=== PATIENT | female | born 2000 | race African-American/Black ===

== ENCOUNTER 2020-10-22 19:32 | Emergency (ER) | payer OTHER ==
[2020-10-22 19:40] VITALS: BMI 28.3
[2020-10-22 20:21] LABS: URINE APPEARANCE CLOUDY; URINE BILIRUBIN NEGATIVE (NEGATIVE); URINE COLOR YELLOW; URINE GLUCOSE (UA) NEGATIVE (NEGATIVE); URINE KETONE TRACE (NEGATIVE); URINE LEUK ESTERASE NEGATIVE (NEGATIVE); URINE NITRITE NEGATIVE (NEGATIVE); URINE PROTEIN NEGATIVE (NEGATIVE)
[2020-10-22] MEDS ORDERED: CEPHALEXIN MONOHYDRATE 500 MG CAPSULE (UD) PO ONE (20:57)
[2020-10-22] MEDS ORDERED: CEPHALEXIN MONOHYDRATE 500 MG CAPSULE (UD) ONE (21:14)
[2020-10-22 21:22] VITALS: BP 111/59; PULSE 68; TEMP 98.3
== END 2020-10-22 21:23 | disposition home or self-care (01) ==
LOC: JER 19:32
DX: N39.0 Urinary tract infection, site not specified (principal)
CPT/HCPCS: 81003; 87086; 99283-25

== ENCOUNTER 2020-11-06 11:26 | Emergency (ER) | payer OTHER | END 2020-11-06 12:10 | disposition home or self-care (01) | LOC: JVIRT 11:26 | DX: R19.7 Diarrhea, unspecified (principal) | CPT/HCPCS: Q3014-GT ==

== ENCOUNTER 2023-03-11 12:56 | Emergency (ER) | payer OTHER ==
[2023-03-11 13:03] VITALS: BP 111/74; PULSE 89; RESP 16; TEMP 99.3; BMI 27.8
== END 2023-03-11 14:33 | disposition home or self-care (01) ==
LOC: JERFT 12:56
DX: L05.91 Pilonidal cyst without abscess (principal)
CPT/HCPCS: 99282-25